=== PATIENT | female | born 1995 | race Caucasian/White ===

== ENCOUNTER 2017-05-29 18:22 | Inpatient (IN) | payer OTHER ==
[2017-05-29 19:10] LABS: APPEARANCE,URINE CLEAR; BILIRUBIN,URINE NEGATIVE (NEGATIVE); GLUCOSE, URINE NEGATIVE (NEGATIVE); KETONES,URINE NEGATIVE (NEGATIVE); LEUKOCYTE ESTERASE,URINE TRACE (NEGATIVE); NITRITE,URINE NEGATIVE (NEGATIVE); PROTEIN,URINE NEGATIVE (NEGATIVE); URINE SPECIFIC GRAVITY 1.004; UROBILINOGEN,URINE NEGATIVE mg/dL (<2.0)
[2017-05-29 19:25] LABS: ABSOLUTE BASOPHILS # (AUTO) 0.1 10^3/uL (0.0-0.2); ABSOLUTE EOSINOPHILS # (AUTO) 0.1 10^3/uL (0.0-0.6); ABSOLUTE LYMPHOCYTES (AUTO) 2.4 10^3/uL (0.5-4.7); ABSOLUTE MONOCYTES (AUTO) 0.8 10^3/uL (0.1-1.4); ABSOLUTE NEUT (AUTO) 9.8 10^3/uL (1.7-8.2); BASOPHILS % (AUTO) 0.4 % (0-2); EOSINOPHILS % (AUTO) 1.1 % (0-6); LYMPHOCYTES % (AUTO) 18.3 % (13-45); MEAN CORPUSCULAR HGB CONC 33.4 g/dL (32.0-36.0); MEAN CORPUSCULAR VOLUME 81 fl (80-97); MONOCYTES % (AUTO) 6.1 % (3-13); RED BLOOD COUNT 4.09 10^6/uL (3.72-5.28); RED CELL DISTRIBUTION WIDTH 15.5 % (11.5-14.0); SEGMENTED NEUTROPHILS % (AUTO) 74.1 % (42-78); WHITE BLOOD COUNT 13.3 10^3/uL (4.0-10.5)
[2017-05-29 19:25] LABS: URINE BARBITURATES SCREEN NEGATIVE; URINE METHADONE SCREEN NEGATIVE; URINE OPIATES LOW NEGATIVE; URINE PHENCYCLIDINE SCREEN NEGATIVE
[2017-05-29] MEDS ORDERED: DINOPROSTONE 10 MG VAGINAL INSERT.SR ONE (19:48)
[2017-05-29] MEDS ORDERED: RINGERS SOLUTION,LACTATED 1,000 ML IV ONE (20:09)
[2017-05-29] MEDS ORDERED: RINGERS SOLUTION,LACTATED 1,000 ML IV PRN ×2 (20:09→21:29)
[2017-05-29] MEDS ORDERED: ZOLPIDEM TARTRATE 5 MG TABLET PO PRN (21:29)
[2017-05-29] MEDS ORDERED: RINGERS SOLUTION,LACTATED 300 ML IV ONE (21:29)
[2017-05-29] MEDS ORDERED: ACETAMINOPHEN 325 MG TABLET PO PRN (21:29)
[2017-05-29] MEDS ORDERED: DINOPROSTONE 10 MG VAGINAL INSERT.SR PV ONE (21:29)
[2017-05-29] MEDS ORDERED: ZOLPIDEM TARTRATE 5 MG TABLET ONE (21:29)
[2017-05-29] MEDS ORDERED: MAG HYDROX/AL HYDROX/SIMETH SUSP 30 ML UDCUP PO PRN (21:29)
[2017-05-30] MEDS ORDERED: OXYTOCIN/NORMAL SALINE 20 UNIT/1,000 ML RTUINJ ONE ×2 (09:42→12:50)
[2017-05-30] MEDS ORDERED: ONDANSETRON HCL INJ/PF 4 MG/2 ML SDV ONE (11:40)
[2017-05-30] MEDS ORDERED: OXYTOCIN/NORMAL SALINE 20 UNIT/1,000 ML RTUINJ IV PRN ×2 (11:53→14:04)
[2017-05-30] MEDS ORDERED: ONDANSETRON HCL INJ/PF 4 MG/2 ML SDV IV ONE (11:54)
[2017-05-30] MEDS ORDERED: EPHEDRINE SULFATE INJ 50 MG/1 ML AMPULE ONE ×2 (12:18→12:50)
[2017-05-30] MEDS ORDERED: FENTANYL CITRATE INJ/PF 100 MCG/2 ML AMPUL ONE (12:18)
[2017-05-30] MEDS ORDERED: FENTANYL/BUPIVACAINE/NS/PF 200 MCG/100 ML RTUINJ EPI ONE (12:18)
[2017-05-30] MEDS ORDERED: PHENYLEPHRINE HCL INJ/PF 10 MG/1 ML SDV ONE (12:18)
[2017-05-30] MEDS ORDERED: BUPIVACAINE HCL 0.25 % INJ/PF (2.5 MG/1 ML) 30 ML VIAL ONE (12:19)
[2017-05-30] MEDS ORDERED: LIDOCAINE 1% INJ-PF (10 MG/ML) 30 ML SDV ONE (12:50)
[2017-05-30] MEDS ORDERED: MISOPROSTOL 0.2 MG TABLET ONE (12:50)
[2017-05-30] MEDS ORDERED: PSEUDOEPHEDRINE HCL 30 MG TABLET PO PRN (14:04)
[2017-05-30] MEDS ORDERED: BENZOCAINE/MENTHOL AEROSOL SPRAY 56 ML TOP PRN (14:04)
[2017-05-30] MEDS ORDERED: DIBUCAINE 1% OINTMENT 28 GM TP PRN (14:04)
[2017-05-30] MEDS ORDERED: PROMETHAZINE HCL 25 MG TABLET PO PRN (14:04)
[2017-05-30] MEDS ORDERED: DIPHENHYDRAMINE HCL 25 MG CAPSULE PO PRN (14:04)
[2017-05-30] MEDS ORDERED: ACETAMINOPHEN 650 MG SUPP.RECT PR PRN (14:04)
[2017-05-30] MEDS ORDERED: MEASLES,MUMPS&RUBELLA VACC/PF 0.5 ML VIAL SUBCUT PRN (14:04)
[2017-05-30] MEDS ORDERED: DIPH/PERTUSS(ACELL)/TETANUS VAC/PF 0.5 ML SYR (>=10YO) IM PRN (14:04)
[2017-05-30] MEDS ORDERED: ACETAMINOPHEN WITH CODEINE #3 TABLET PO PRN ×2 (14:04)
[2017-05-30] MEDS ORDERED: ZOLPIDEM TARTRATE 5 MG TABLET PO PRN (14:04)
[2017-05-30] MEDS ORDERED: PROMETHAZINE HCL 25 MG SUPP.RECT PR PRN (14:04)
[2017-05-30] MEDS ORDERED: MAGNESIUM HYDROXIDE SUSP 30 ML UDCUP PO PRN (14:04)
[2017-05-30] MEDS ORDERED: GLYCERIN/WITCH HAZEL LEAF 1 EACH MED..PAD TP PRN (14:04)
[2017-05-30] MEDS ORDERED: PROMETHAZINE HCL INJ 25 MG/1 ML VIAL IV PRN (14:04)
[2017-05-30] MEDS ORDERED: NA PHOS,M-B/NA PHOS,DI-BA (ADULT) 133 ML ENEMA PR PRN (14:04)
--- NOTE | 2017-05-30 14:23 | Delivery Summary ---
Del Sum A-C Datetime Report Generated by CPN: 05/30/2017 14:23 DELIVERY PERSONNEL DELIVERY PERSONNEL: [id number] Delivery Doctor:: Melissa Buck CNM Nurse Business Banking Representative Certified:: Melissa Buck CNM Labor and Delivery Nurse:: Ama Hager RNbonding supervisor Nurse:: YANET Salvador Student Observers:: Cortez Paulino MS-III Clinical Informaticist/DINKEY ENGINE MECHANIC: Verna Mendez CNA II Clinical Informaticist/DINKEY ENGINE MECHANIC: Josey Valerio, [facility] [employer] MATERNAL INFORMATION Delivery Anesthesia: Epidural Medications After Delivery: Pitocin Bolus-Please Comment; Pitocin Drip 20 Units/1000ml NSS Estimated Blood Loss (ml): 250 Maternal Complications: None Provider Comments: Called to room [address] Toro, medical student present and did of viable female in vertex OA to IVIS at 1259 under epidural anesthesia. Nuchal cord x1-delivered through it. Shoulders and body delivered easily. Spontaneous respirations and cry. Apgars 9-10. 3-vessel cord. Cord clamped x 2, after 2 minute delay, then cut by FOB. Placenta, membranes, and cord expelled at 1307, Hansen presentation. Placenta appears intact. 2nd degree perineal tear repaired as above. FF at U-3. Lochia small. Patient tolerated procedure well. LABOR SUMMARY EDC: 05/21/2017 00:00 No. Babies in Womb: 1 Attempted: No Labor Anesthesia: Epidural LABOR INFORMATION Reason for Induction: Post Dates Onset of Labor: 05/30/2017 12:00 Complete Dilatation: 05/30/2017 12:35 Cervical Ripening Agents: Cervidil Oxytocin: Induction Group B Beta Strep: neg Antibiotics # of Doses: 0 Steroids Given: None Reason Steroids Not Administered: Not Applicable MEMBRANES Membranes Rupture Method: Spontaneous Rupture of Membranes: 05/30/2017 12:00 Length of Rupture (hr): 0.98 Amniotic Fluid Color: Clear Amniotic Fluid Amount: Small Amniotic Fluid Odor: None STAGES OF LABOR Stage 1 hr: 0 Stage 1 min: 35 Stage 2 hr: 0 Stage 2 min: 24 Stage 3 hr: 0 Stage 3 min: 8 Total Time in Labor hr: 1 Total Time in Labor min: 7 VAGINAL DELIVERY Episiotomy: None Laceration Extension: Second Degree Laceration Type: Perineal Laceration Repair: Yes Laceration Repair Note: Repaired in usual fashion with 2-0 Chromic CSECTION DELIVERY Primary Indication: N/A Secondary Indication: N/A CSection Incision: N/A BABY A INFORMATION Infant Delivery Date/Time: 05/30/2017 12:59 Method of Delivery: Vaginal Born in Route : No : N/A Forceps: N/A Vacuum Extraction: N/A Shoulder Dystocia : No PRESENTATION/POSITION BABY A Presentation: Cephalic Cephalic Presentation: Vertex Vertex Position: Left Occipital Anterior Breech Presentation: N/A PLACENTA INFORMATION BABY A Placenta Delivery Time : 05/30/2017 13:07 Placenta Method of Delivery: Spontaneous Placenta Status: Delivered SCORES BABY A Heart Rate 1 min: >100 bpm Resp Effort 1 min: Good Cry Reflex Irritability 1 min: Cough or Sneeze or Pulls Away Muscle Tone 1 min: Active Motion Color 1 min: Body [place], Extremities Blue Resuscitation Effort 1 min: N/A SCORE 1 MIN: 9 Heart Rate 5 min: >100 bpm Resp Effort 5 min: Good Cry Reflex Irritability 5 min: Cough or Sneeze or Pulls Away Muscle Tone 5 min: Active Motion Color 5 min: Completely Nome Resuscitation Effort 5 min: N/A SCORE 5 MIN: 10 INFORMATION BABY A Gestational Age at Delivery: 41.2 Gestational Status: Late Term- 41- 41.6 Weeks Infant Outcome : Liveborn Condition : Stable Infant Sex: Female WEIGHT/LENGTH BABY A Infant Birthweight (gm): 3280 Weight (lb): 7 Weight (oz): 4 Length (in): 19.75 Length (cm): 50.17 CORD INFORMATION BABY A No. Cord Vessels: 3 Nuchal Cord : Around Neck x1, Loose Cord Blood Taken: Yes-For Eval (Mom's Blood Type - or O+) Infant Suction: None ASSESSMENT BABY A Skin to Skin: Yes Skin to Skin Time (min): 50 BABY B INFORMATION : N/A SIGNATURES Assignment: Dalila Weldon MD Signature: with User ID: Thalia : with User ID: Thalia : I personally evaluated and examined the patient in conjunction with the P and agree with the assessment, treatment plan and disposition.
--- NOTE | 2017-05-30 15:22 | Admission Physical ---
Datetime Report Generated by CPN: 05/30/2017 15:22 CURRENT ADMISSION Hx Assessment: The History has been Reviewed and is Current Chief Complaint: Scheduled Induction of Labor Indication for Induction: Post Dates Indication for Induction- Other: calcified placenta Admit Plan: Admit to Unit ALLERGIES Medication Allergies: Yes Medication Allergies: penicillin G (05/29/2017) Medication Allergies: Penicillin Latex: No Latex Allergies Food Allergies: None Environmental Allergies: none OBSTETRICAL HISTORY EDC: 05/21/2017 00:00 : 1 : 1 Para: 0 Para: 0 Term: 0 : 0 SAB: 0 IAB: 0 Ectopic: 0 Livin Cesareans: 0 VBACs: 0 Multiple Births: 0 Gestational Diabetes: No Rh Sensitization: No Incompetent Cervix: No ANABELL: No Infertility: No ART Treatment: No Uterine Anomaly: No IUGR: No Hx Previous C/S: No Macrosomia: No Hx Loss/Stillborn: No PIH: No Hx : No Placenta Previa/Abruption: No Depression/PP Depression: No PTL/PROM: No Post Hemorrhage: No Current Procedures: Ultrasound Obstetrical History Comments: G1 current SEE RECORDS Alcohol: No Marijuana : No Cocaine: No Other Illicit Drugs: No Cigarettes: Never Smoker. [id number] MEDICAL HISTORY Diabetes: No Blood Transfusion: No Pulmonary Disease (Asthma, TB): Yes Breast Disease: No Hypertension: No Studio Designer Surgery: No Heart Disease: No Hosp/Surgery: No Autoimmune Disorder: No Anesthetic Complications: No Kidney Disease: No Abnormal Pap Smear: No Neuro/Epilepsy: No Psychiatric Disorders: No Other Medical Diseases: No Hepatitis/Liver Disease: No Significant Family History: No Varicosities/Phlebitis: No Trauma/Violence : No Thyroid Dysfunction: No Medical History Comments: mild asthma INFECTIOUS HISTORY Gonorrhea: No Genital Herpes: No Chlamydia: No Tuberculosis: No Syphilis: No Hepatitis: No HIV/AIDS Exposure: No Rash or Viral Illness: No HPV: No PHYSICAL EXAM General: Normal HEENT: Normal Neurologic: Normal Thyroid: Deferred Heart: Normal Lungs: Normal Breast: Normal Back: Normal Abdomen: Normal Genitourinary Exam: Normal Extremities: Normal DTRs: Normal Pelvic Type: Adequate Vital Signs: Reviewed VAGINAL EXAM Dilatation: 1 Effacement: 60 Station: -3 Contraction Comments: irregular MEMBRANES Membranes: Intact FETUS A EGA: 41.1 Monitoring: External US FHR- Baseline: 135 Variability: Moderate 6-25bpm Accelerations: 15X15 Decelerations: None FHR Category: Category I Estimated Weight (gm): 3500 Presentation: Vertex Admit Comment: Pt sent in from office for iol, d/t calcified placenta and post dates, and nr nst Pt denies medical, surgical, or ob hx. Allegry to pcn GBS negative Plan for cervidil overnight Oxytoicin in the am. PLANS FOR LABOR AND DELIVERY Pain Management: Epidural Feeding Preference: Breast Benefit of Breast Feed Discussed: Yes Circumcision: Yes INFORMED CONSENT Assignment: Bautista Gonzales DO Signature: with User ID: [email or web address] : with User ID: [email or web address] : I personally evaluated and examined the patient in conjunction with the MLP and agree with the assessment, treatment plan and disposition.
[2017-05-30] MEDS: FERROUS SULFATE 325 MG TABLET PO SCH (17:21)
[2017-05-30] MEDS: DOCUSATE SODIUM 100 MG CAPSULE PO SCH (17:24)
[2017-05-30] MEDS ORDERED: IBUPROFEN 800 MG TABLET ONE (17:29)
[2017-05-30] MEDS: FAMOTIDINE 20 MG TABLET PO SCH (22:26)
[2017-05-30] MEDS: IBUPROFEN 800 MG TABLET PO SCH (22:27)
[2017-05-31] MEDS: IBUPROFEN 800 MG TABLET PO SCH ×3 (05:51→21:11)
[2017-05-31 07:32] LABS: HEMATOCRIT 27.9 % (36.0-47.0); HGB HCT DIFFERENCE -0.9; MEAN CORPUSCULAR HEMOGLOBIN 26.4 pg (27.0-33.4); MEAN CORPUSCULAR HGB CONC 32.1 g/dL (32.0-36.0); MEAN CORPUSCULAR VOLUME 82 fl (80-97); RED CELL DISTRIBUTION WIDTH 15.8 % (11.5-14.0); WHITE BLOOD COUNT 13.8 10^3/uL (4.0-10.5)
[2017-05-31] MEDS: SENNOSIDES/DOCUSATE 8.6-50 MG 1 EACH TABLET PO SCH (09:54)
[2017-05-31] MEDS: PRENATAL VITAMIN W-O CA NO5/FE FUMARATE/FA CAPSULE PO SCH (09:54)
[2017-05-31] MEDS: DOCUSATE SODIUM 100 MG CAPSULE PO SCH ×2 (09:54→18:35)
[2017-05-31] MEDS: FERROUS SULFATE 325 MG TABLET PO SCH ×2 (10:24→18:34)
[2017-05-31] MEDS: FAMOTIDINE 20 MG TABLET PO SCH ×2 (10:24→21:11)
--- NOTE | 2017-05-31 13:12 | PDOC PROGRESS REPORT ---
Subjective-OB Subjective: Post Delivery Day: 21 year old. Denies any needs at this time Physical Exam (OB) Vital Signs: Temp Pulse Resp BP Pulse Ox 98.4 F 84 16 112/70 100 05/31/17 07:54 05/31/17 07:54 05/31/17 07:54 05/31/17 07:54 05/31/17 07:54 Intake & Output 05/30/17 05/31/17 06/01/17 06:59 06:59 06:59 Weight 70.8 kg - PIH/Pre-Eclampsia DTR's: 1 + Clonus: Negative Headache: Absent Epigastric Pain: No Visual Changes: No - Lochia Lochia Amount: Small 10-25 ml Lochia Color: Rubra/Red - Abdomen Description: Soft Hernia Present: No Bowel Sounds: Normoactive Flatus Presence: Present Stool: No Fundal Description: Firm, Midline Fundal Height: u/u - u/2 Objective-Diagnostic Laboratory: 05/31/17 07:15 05/31/17 07:15 WBC 13.8 H RBC 3.40 L Hgb 9.0 L Hct 27.9 L MCV 82 MCH 26.4 L MCHC 32.1 RDW 15.8 H Plt Count 176
[2017-06-01] MEDS: IBUPROFEN 800 MG TABLET PO SCH (05:50)
[2017-06-01 08:14] VITALS: BP 110/73
[2017-06-01] MEDS: FERROUS SULFATE 325 MG TABLET PO SCH (09:11)
[2017-06-01] MEDS: SENNOSIDES/DOCUSATE 8.6-50 MG 1 EACH TABLET PO SCH (09:11)
[2017-06-01] MEDS: FAMOTIDINE 20 MG TABLET PO SCH (09:11)
[2017-06-01] MEDS: DOCUSATE SODIUM 100 MG CAPSULE PO SCH (09:11)
[2017-06-01] MEDS: PRENATAL VITAMIN W-O CA NO5/FE FUMARATE/FA CAPSULE PO SCH (09:11)
--- NOTE | 2017-06-01 10:03 | PDOC DISCHARGE SUMMARY ---
General - Admit/Disc Date/PCP Admission Date/Primary Care Provider: 05/29/17 18:22 SAUL HOOK DO Discharge Date: 06/01/17 - Discharge Diagnosis (1) Delivery normal Is this a current diagnosis for this admission?: Yes (2) History of asthma Is this a current diagnosis for this admission?: Yes (3) Is this a current diagnosis for this admission?: Yes - Additional Information Home Medications: Pnv No.122/Iron/Folic Acid [ Multi Tablet] 1 tab PO DAILY 05/29/17 History of Present Illness History of Present Illness: VIVEK NG is a 21 year old female Hospital Course Hospital Course: vaginal delivery with normal course. Physical Exam - Physical Exam Vital Signs: Temp Pulse Resp BP Pulse Ox 97.9 F 78 18 110/73 98 06/01/17 08:32 06/01/17 08:32 06/01/17 08:32 06/01/17 07:43 06/01/17 08:32 - Obstetrical Exam Fundal Height: u/u - u/2 Tender: No Result Laboratory Results: 05/31/17 07:15 Plan Discharge Plan: discharge home with f/u in 4 wks w/ [facility] Time Spent: Less than 30 Minutes
== END 2017-06-01 12:14 | disposition home or self-care (01) | DRG 775 ==
LOC: LR 18:22 → 2S 05-30 15:20
PROVIDERS: ADMIT Obstetrics & Gynecology; ATTEND Obstetrics & Gynecology
PROC: 4A1HXCZ Monitoring of Products of Conception, Cardiac Rate, External Approach (ICD-10-PCS; 2017-05-29)
PROC: 10E0XZZ Delivery of Products of Conception, External Approach (ICD-10-PCS; principal; 2017-05-30)
PROC: 0KQM0ZZ Repair Perineum Muscle, Open Approach (ICD-10-PCS; 2017-05-30)
PROC: 3E033VJ Introduction of Other Hormone into Peripheral Vein, Percutaneous Approach (ICD-10-PCS; 2017-05-30)
DX: O48.0 Post-term pregnancy (principal); O70.1 Second degree perineal laceration during delivery; O99.52 Diseases of the respiratory system complicating childbirth; J45.909 Unspecified asthma, uncomplicated; O69.81X0 Labor and delivery complicated by cord around neck, without compression, not applicable or unspecified; Z88.0 Allergy status to penicillin; Z3A.41 41 weeks gestation of pregnancy; Z37.0 Single live birth
CPT/HCPCS: 36415; 80307; 81005; 85025; 85027; 86592; 86850; 86900; 86901; 88307; 94760; J2370; J2405; J2590; J3010; J3490

== ENCOUNTER 2017-06-02 14:38 | Emergency (ER) | payer OTHER ==
[2017-06-02] MEDS ORDERED: ONDANSETRON HCL INJ/PF 4 MG/2 ML SDV IV ONE (15:06)
[2017-06-02] MEDS ORDERED: NORMAL SALINE 1000 ML 1,000 ML IV PRN (15:06)
[2017-06-02] MEDS ORDERED: KETOROLAC TROMETHAMINE INJ/PF 30 MG/1 ML SDV IV ONE (15:06)
--- NOTE | 2017-06-02 15:07 | ER Document Report ---
ED Medical Screen (RME) - General Chief Complaint: Headache Stated Complaint: HEADACHE Time Seen by Provider: 06/02/17 15:01 Mode of Arrival: Ambulatory Information source: Patient TRAVEL OUTSIDE OF THE [place] IN LAST 30 DAYS: No - HPI Patient complains to provider of: Headache Notes: 06/02/17 15:06 Patient is a 21-year-old female who is 3 days , presenting to the emergency room today complaining of headache which is likely result of receiving an epidural 3 days ago during labor, she denies any history of headaches previously, no head injury, no fever, no nausea or vomiting - Related Data Allergies/Adverse Reactions: penicillin G Allergy (Verified 06/02/17 14:49) Past Medical History - Social History Chew tobacco use (# tins/day): No Frequency of alcohol use: None Drug Abuse: None Renal/ Medical History: Denies: Hx Peritoneal Dialysis Physical Exam - Vital signs Vitals: Temp Pulse Resp BP Pulse Ox 97.6 F 86 16 118/72 99 06/02/17 14:48 06/02/17 14:48 06/02/17 14:48 06/02/17 14:48 06/02/17 14:48 Course - Vital Signs Vital signs: Temp Pulse Resp BP Pulse Ox 97.6 F 86 16 118/72 99 06/02/17 14:48 06/02/17 14:48 06/02/17 14:48 06/02/17 14:48 06/02/17 14:48
--- NOTE | 2017-06-02 15:39 | ER Document Report ---
ED Headache - General Mode of Arrival: Ambulatory Information source: Patient TRAVEL OUTSIDE OF THE [place] IN LAST 30 DAYS: No - HPI Patient complains to provider of: Other - post epidural headache Recently seen / treated by doctor: Yes <KADEN BRYANT - Last Filed: 06/02/17 17:42> <MARIAJOSE MEZA - Last Filed: 06/03/17 00:31> - General Chief Complaint: Headache Stated Complaint: HEADACHE Time Seen by Provider: 06/02/17 15:01 Notes: Patient is a 21 year old female who is 3 days post partium that presents to the emergency department today with complaints of a post-epidural headache. Patient states she had an epidural three days ago and she has had a headache "either the day of it or the next day", she cannot remember. Patient states she had no complications with delivery. (KADEN BRYANT) - Related Data Allergies/Adverse Reactions: penicillin G Allergy (Verified 06/02/17 14:49) Past Medical History - General Information source: Patient - Social History Smoking Status: Never Smoker Cigarette use (# per day): No Chew tobacco use (# tins/day): No Frequency of alcohol use: None Drug Abuse: None Lives with: Family Family History: Reviewed & Not Pertinent - Medical History Medical History: Negative Surgical Hx: Negative <KADEN BRYANT - Last Filed: 06/02/17 17:42> Review of Systems - Review of Systems Constitutional: No symptoms reported EENT: No symptoms reported Cardiovascular: No symptoms reported Respiratory: No symptoms reported Gastrointestinal: No symptoms reported Genitourinary: No symptoms reported Female Genitourinary: No symptoms reported Musculoskeletal: No symptoms reported Skin: No symptoms reported Hematologic/Lymphatic: No symptoms reported Neurological/Psychological: See HPI, Headaches -: Yes All other systems reviewed and negative <KADEN BRYANT - Last Filed: 06/02/17 17:42> Physical Exam <KADEN BRYANT - Last Filed: 06/02/17 17:42> <MARIAJOSE MEZA - Last Filed: 06/03/17 00:31> - Vital signs Vitals: Temp Pulse Resp BP Pulse Ox 97.6 F 86 16 118/72 99 06/02/17 14:48 06/02/17 14:48 06/02/17 14:48 06/02/17 14:48 06/02/17 14:48 - Notes Notes: Physical Exam: General: Alert, appears well. HEENT: Normocephalic. Atraumatic. PERRL. Extraocular movements intact. Oropharynx clear. Neck: Supple. Non-tender. Respiratory: No respiratory distress. Clear and equal breath sounds bilaterally. Cardiovascular: Regular rate and rhythm. Abdominal: Normal Inspection. Non-tender. No distension. Normal Bowel Sounds. Back: Non-tender. No deformity or step off. Extremities: Moves all four extremities. Upper extremities: Normal inspection. Normal ROM. Lower extremities: Normal inspection. No edema. Normal ROM. Neurological: Normal cognition. AAOx4. Normal speech. Psychological: Normal affect. Normal Mood. Skin: Warm. Dry. Normal color. (KADEN BRYANT) Course - Laboratory Result Diagrams: 06/02/17 15:26 <KADEN BRYANT - Last Filed: 06/02/17 17:42> - Laboratory Result Diagrams: 06/02/17 15:26 <MARIAJOSE MEZA - Last Filed: 06/03/17 00:31> - Re-evaluation Re-evalutation: 06/02/17 16:38 Anesthesia is at bedside (KADEN BRYANT) Patient with no acute findings on blood work. Symptoms are consistent with spinal headache. Anesthesia called who placed blood patch. Patient is feeling much better. Ambulates without difficulty. Patient is to follow-up with her OB /CONGRESSIONAL REPRESENTATIVE as scheduled. Stable for discharge. (MARIAJOSE MEZA) - Vital Signs Vital signs: Temp Pulse Resp BP Pulse Ox 97.6 F 86 18 108/67 99 06/02/17 14:48 06/02/17 18:30 06/02/17 18:30 06/02/17 18:30 06/02/17 18:30 - Laboratory Laboratory results interpreted by ks: 06/02/17 06/02/17 15:26 15:26 WBC 11.5 H Hgb 10.6 L Hct 33.2 L MCH 26.3 L MCHC 31.9 L RDW 16.0 H APTT 20.2 L Discharge <KADEN BRYANT - Last Filed: 06/02/17 17:42> <MARIAJOSE MEZA - Last Filed: 06/03/17 00:31> - Discharge Clinical Impression: Spinal headache Condition: Stable Disposition: HOME, SELF-CARE Instructions: Post-Spinal Headache ([facility]) Referrals: SHANELL HOBBS MD [Primary Care Provider] - Follow up as needed Scribe Attestation: 06/03/17 00:31 I personally performed the services described in the documentation, reviewed and edited the documentation which was dictated to the scribe in my presence, and it accurately records my words and actions. (MARIAJOSE MEZA) Scribe Documentation - Scribe Written by Evgenyibe:: Akila Rolon, 06/02/2017 1746 acting as scribe for :: Allyson <KADEN BRYANT - Last Filed: 06/02/17 17:42>
[2017-06-02 15:44] LABS: ABSOLUTE BASOPHILS # (AUTO) 0.1 10^3/uL (0.0-0.2); ABSOLUTE EOSINOPHILS # (AUTO) 0.3 10^3/uL (0.0-0.6); ABSOLUTE LYMPHOCYTES (AUTO) 2.3 10^3/uL (0.5-4.7); ABSOLUTE MONOCYTES (AUTO) 0.7 10^3/uL (0.1-1.4); ABSOLUTE NEUT (AUTO) 8.1 10^3/uL (1.7-8.2); BASOPHILS % (AUTO) 0.4 % (0-2); EOSINOPHILS % (AUTO) 2.2 % (0-6); HEMATOCRIT 33.2 % (36.0-47.0); HEMOGLOBIN 10.6 g/dL (12.0-15.5); HGB HCT DIFFERENCE -1.4; LYMPHOCYTES % (AUTO) 20.2 % (13-45); MEAN CORPUSCULAR HEMOGLOBIN 26.3 pg (27.0-33.4); MEAN CORPUSCULAR HGB CONC 31.9 g/dL (32.0-36.0); MEAN CORPUSCULAR VOLUME 83 fl (80-97); MONOCYTES % (AUTO) 6.2 % (3-13); RED BLOOD COUNT 4.03 10^6/uL (3.72-5.28); WHITE BLOOD COUNT 11.5 10^3/uL (4.0-10.5)
[2017-06-02 15:55] LABS: PROTHROMBIN TIME 12.3 SEC (11.4-15.4)
[2017-06-02 15:56] LABS: PARTIAL THROMBOPLASTIN TIME 20.2 SEC (23.5-35.8)
[2017-06-02 18:31] VITALS: BP 108/67
== END 2017-06-02 18:30 | disposition home or self-care (01) ==
LOC: ER 14:38
DX: R51 Headache (principal)
CPT/HCPCS: 99284; 96361; 99152; 96374; 96375; 36415; 85025; 85610; 85730; J1885; J2405; J7030